=== PATIENT | female | born 1985 | race Caucasian/White ===

== ENCOUNTER 2018-10-30 08:07 | Emergency (ER) | payer OTHER ==
[~2018-10-30] VITALS: Ht 172.7 cm; Wt 68.0 kg
--- NOTE | 2018-10-30 08:34 | PHYS DOC ---
Past History Past Medical History: No Pertinent History Past Surgical History: No Surgical History Smoking: Non-smoker Alcohol Use: None Drug Use: None Adult General Chief Complaint Chief Complaint: CHEST PAIN [facility] HPI Patient is a 32 year old female who presents with complaining of chest pain. Patient complaining of gradual onset of substernal chest pain since yesterday morning as an aching and constant pain without radiation. Patient complaining of episodes of nausea and shortness of breath without dizziness and palpitation patient rated her pain for over 10 and states the pain getting worse with taking deep breaths and eating. Patient denies fever and chills, injury, recent URI symptoms, history of chest pain. Patient does not have cardiac or PE risk factors. Patient did not take any pain medication since yesterday. Review of Systems Review of Systems Constitutional: Denies fever or chills [] Eyes: Denies change in visual acuity, redness, or eye pain [] HENT: Denies nasal congestion or sore throat [] Respiratory: Denies cough or shortness of breath [] Cardiovascular: No additional information not addressed in HPI [] GI: Denies abdominal pain, nausea, vomiting, bloody stools or diarrhea [] : Denies dysuria or hematuria [] Musculoskeletal: Denies back pain or joint pain [] Integument: Denies rash or skin lesions [] Neurologic: Denies headache, focal weakness or sensory changes [] Endocrine: Denies polyuria or polydipsia [] All other systems were reviewed and found to be within normal limits, except as documented in this note. Allergies Allergies Allergies Coded Allergies Type Severity Reaction Last Updated Verified No Known Drug Allergies 10/30/18 No Physical Exam Physical Exam Constitutional: Well developed, well nourished, mild acute distress, non-toxic appearance. [] HENT: Normocephalic, atraumatic, no oral exudates, nose normal. [] Eyes: PERRLA, EOMI, conjunctiva normal, no discharge. [] Neck: Normal range of motion, no tenderness, supple, no stridor. [] Cardiovascular:Heart rate regular rhythm, no murmur [] Lungs & Thorax: Bilateral breath sounds clear to auscultation , reproducible substernal pain[] Abdomen: Bowel sounds normal, soft, no tenderness, no masses, no pulsatile masses. [] Skin: Warm, dry, no erythema, no rash. [] Back: No tenderness, no CVA tenderness. [] Extremities: No tenderness, no cyanosis, no clubbing, ROM intact, no edema. [] Neurologic: Alert and oriented X 3, normal motor function, normal sensory function, no focal deficits noted. [] Psychologic: Affect normal, judgement normal, mood normal. [] Current Patient Data Vital Signs Vital Signs Date Time Temp Pulse Resp B/P (MAP) Pulse Ox O2 Delivery O2 Flow Rate FiO2 10/30/18 08:19 98.4 86 18 100 EKG EKG Page interpreted by me. EKG at 0 822 showed normal sinus rhythm at rate of 79, right castorena axis, poor R-wave progress in anteroseptal leads, no acute ST and T- wave abnormalities. Radiology/Procedures Radiology/Procedures [address] [id number] IMAGING REPORT Signed PATIENT: LOU MALDONADO ACCOUNT: [id number] : 1985 LOCATION: ER AGE: 32 SEX: F EXAM STATUS: PRE ER ORD. PHYSICIAN: SIOMARA MCKINNEY MD REASON: chest pain PROCEDURE: CHEST PA & LATERAL EXAM: Chest, 2 views. HISTORY: Chest pain. COMPARISON: None. FINDINGS: 2 views of the chest are obtained. There is no infiltrate, pleural effusion or pneumothorax. The heart is normal in size. There is slight increased opacity overlying the right lower lobe due to overlying osseous and soft tissue shadows. IMPRESSION: No acute pulmonary finding. Electronically signed by: Michael Galarza MD (10/30/2018 8:40 AM) [id number] DICTATED AND SIGNED BY: MICHAEL GALARZA MD DATE: 10/30/18 [id number] CC: SIOMARA MCKINNEY MD ~ Course & Med Decision Making Course & Med Decision Making Pertinent Labs and Imaging studies reviewed. (See chart for details) Evaluation of patient in ER showed 31-year-old female patient with complaining of substernal chest pain for 2 days. Patient had reproducible chest wall pain with unremarkable chest x-ray, CBC and CMP and cardiac enzymes, EKG. Patient treated with Toradol not significant change of her pain. Plan discharge patient home with diagnose of musculoskeletal chest pain. Dragon Disclaimer Dragon Disclaimer This electronic medical record was generated, in whole or in part, using a voice recognition dictation system. Departure Departure: Impression: Primary Impression: Musculoskeletal chest pain Disposition: HOME, SELF-CARE (@1013) Condition: STABLE Patient Instructions: Chest Wall Pain Additional Instructions: Drink plenty of liquids Follow-up with your primary care physician in 3-5 days Return to ER if not getting better Apply ice on the affected area Scripts Hydrocodone Bit/Acetaminophen (NORCO 5-325 TABLET) 1 Each Tablet 1 TAB PO PRN Q6HRS PRN for PAIN, #14 TAB 0 Refills Prov: SIOMARA MCKINNEY MD 10/30/18 Cyclobenzaprine Hcl (CYCLOBENZAPRINE HCL) 10 Mg Tablet 1 TAB PO TID for pain, #30 TAB Prov: SIOMARA MCKINNEY MD 10/30/18 SIOMARA MCKINNEY MD Oct 30, 2018 08:34
--- NOTE | 2018-10-30 08:44 | RAD ---
EXAM: Chest, 2 views. HISTORY: Chest pain. COMPARISON: None. FINDINGS: 2 views of the chest are obtained. There is no infiltrate, pleural effusion or pneumothorax. The heart is normal in size. There is slight increased opacity overlying the right lower lobe due to overlying osseous and soft tissue shadows. IMPRESSION: No acute pulmonary finding. Electronically signed by: Patsy Rogers MD (10/30/2018 8:40 AM) [id number]
[2018-10-30 08:54] LABS: BASO % 0 % (0-3); EOS # 0.1 x10^3/uL (0.0-0.7); EOS % 2 % (0-3); HEMATOCRIT 39.7 % (36.0-47.0); HEMOGLOBIN 13.5 g/dL (12.0-15.5); LYMPH # 1.8 x10^3/uL (1.0-4.8); LYMPH % 40 % (24-48); MEAN CORPUSCULAR HEMOGLOBIN 30 pg (25-35); MEAN CORPUSCULAR HGB CONC 34 g/dL (31-37); MEAN CORPUSCULAR VOLUME 89 fL (79-100); MONO # 0.3 x10^3/uL (0.0-1.1); MONO % 7 % (0-9); NEUT # 2.3 x10^3uL (1.8-7.7); NEUT % 51 % (31-73); PLATELET COUNT 198 x10^3/uL (140-400); RED BLOOD COUNT 4.46 x10^6/uL (3.50-5.40); RED CELL DISTRIBUTION WIDTH 13.1 % (11.5-14.5); WHITE BLOOD COUNT 4.5 x10^3/uL (4.0-11.0)
[2018-10-30] MEDS ORDERED: KETOROLAC 30 MG/ML VIAL. IV ONE (09:00)
[2018-10-30 09:09] LABS: ALBUMIN 4.1 g/dL (3.4-5.0); ALBUMIN/GLOBULIN RATIO 1.3 (1.0-1.7); CALCIUM 8.9 mg/dL (8.5-10.1); CREATININE 0.8 mg/dL (0.6-1.0); GFR 82.6; MAGNESIUM 2.1 mg/dL (1.8-2.4); POTASSIUM 4.3 mmol/L (3.5-5.1); TOTAL BILIRUBIN 0.6 mg/dL (0.2-1.0); TOTAL PROTEIN 7.3 g/dL (6.4-8.2)
[2018-10-30 10:15] VITALS: BP 15/68
[2018-10-30] MEDS ORDERED: HYDR-3165 PO (10:15)
[2018-10-30] MEDS ORDERED: CYCL-331 PO (10:15)
--- NOTE | 2018-10-30 16:26 | EKG ---
[address] [address] Test Date: 2018-10-30 Test Time: 08:22:21 Pat Name: LOU MALDONADO Department: Room: Gender: F High Scaler: ED3 : 1985 Requested By: SIOMARA MCKINNEY Order Number: [id number] Reading MD: Abner Dawn Measurements Intervals [place] Rate: 79 P: 65 [place]: 144 QRS: 92 QRSD: 92 T: 48 QT: 380 QTc: 437 Interpretive Statements SINUS RHYTHM Electronically Signed On 11-06-2018 8:09:32 [employer] by Abner Dawn
== END 2018-10-30 10:19 | disposition home or self-care (01) ==
LOC: ER 08:07
DX: R07.2 Precordial pain (principal)
CPT/HCPCS: 36415; 71046; 80053; 82550; 83690; 83735; 84484; 85025; 93005; 96374; 99284; J1885